=== PATIENT | male | born 1960 | race African-American/Black ===

== ENCOUNTER 2023-08-26 16:03 | Inpatient (IN) | payer OTHER ==
[~2023-08-26] VITALS: Ht 215.9 cm; Wt 146.7 kg
[2023-08-26] MEDS ORDERED: aspirin 81mg tab.chew PO ONE (16:25)
[2023-08-26 17:49] LABS: BASOPHILS % (AUTO) 0.4 % (0-1); EOSINOPHILS # (AUTO) 0.1 X10'3 (0-0.9); EOSINOPHILS % (AUTO) 1.1 % (0-6); HEMATOCRIT 38.1 % (42.0-52.0); HEMOGLOBIN 12.9 g/dl (14.0-17.9); LYMPHOCYTES # (AUTO) 0.7 X10'3 (1.1-4.8); LYMPHOCYTES % (AUTO) 7.6 % (21-51); MEAN CORPUSCULAR HEMOGLOBIN 33.6 PG (27.0-31.0); MEAN CORPUSCULAR HGB CONC 33.9 g/dL (33.0-36.5); MEAN PLATELET VOLUME 8.3 FL (7.4-10.4); MONOCYTES # (AUTO) 0.7 X10'3 (0-0.9); MONOCYTES % (AUTO) 8.2 % (2-12); NEUTROPHILS # (AUTO) 7.5 X10'3 (1.8-7.7); NEUTROPHILS % (AUTO) 82.7 % (42-75); PLATELET COUNT 108 X10'3 (140-440); RED BLOOD COUNT 3.85 X10'6 (4.70-6.10); RED CELL DISTRIBUTION WIDTH 13.6 % (11.5-14.5); WHITE BLOOD COUNT 9.1 X10'3 (4.5-11.0)
[2023-08-26 18:00] LABS: D-DIMER 24.05 MG/L FEU (0-0.50); INR 1.1 INR; PROTHROMBIN TIME 11.5 SECONDS (9.0-12.0)
[2023-08-26 18:01] LABS: ALANINE AMINOTRANSFERASE 36 U/L (12-78); ALBUMIN 3.6 G/DL (3.4-5.0); ALBUMIN/GLOBULIN RATIO 0.9 (1.1-1.5); ALKALINE PHOSPHATASE 76 IU/L (46-116); ANION GAP 4 (8-16); ASPARTATE AMINO TRANSFERASE 29 U/L (10-37); BLOOD UREA NITROGEN 18 MG/DL (7-18); BUN/CREATININE RATIO 14.5 (10.0-20.0); CALCIUM 8.7 MG/DL (8.5-10.1); CHLORIDE 104 MMOL/L (99-107); CREATININE 1.24 MG/DL (0.60-1.10); GLUCOSE 133 MG/DL (70-104); POTASSIUM 4.4 MMOL/L (3.5-5.1); SODIUM 136 MMOL/L (135-145); TOTAL CARBON DIOXIDE 27.6 MMOL/L (24-32); TOTAL PROTEIN 7.6 G/DL (6.4-8.2); eCRCL 92 ML/MIN; eGFR 59 ML/MIN
[2023-08-26] MEDS ORDERED: iohexol 350MG/ML 100ml bottle IV ONE (18:12)
[2023-08-26] MEDS ORDERED: heparin 10,000 units/1 ML INJ IV ONE ×2 (18:15→18:20)
[2023-08-26 19:28] LABS: APTT 28 SECONDS (22-32)
[2023-08-26 20:29] LABS: BILIRUBIN,URINE NEGATIVE (Neg); GLUCOSE, URINE NEGATIVE (Neg); KETONES,URINE NEGATIVE (Neg); LEUKOCYTE ESTERASE ,URINE NEGATIVE (Neg); NITRITES, URINE NEGATIVE (Neg); OCCULT BLOOD,URINE TRACE-INTACT (Neg); PH,URINE 5.5 (4.8-8.0); PROTEIN,URINE TRACE mg/dl (Neg)
[2023-08-26 20:35] LABS: COLOR,URINE DARK YELLOW (Yellow); UA COLLECTION TYPE VOIDED
[2023-08-26 20:36] LABS: CLARITY,URINE SLIGHTLY CLOUDY (Clear)
[2023-08-26 20:38] LABS: BACTERIA,URINE FEW /HPF (Neg); MUCUS STRANDS FEW /LPF (Neg); RBC,URINE 0-2 /HPF (0-2); SQUAMOUS EPITHELIAL CELL,UR FEW /LPF (FEW); URIC ACID CRYSTALS FEW /HPF (NEGATIVE)
[2023-08-26 20:39] LABS: SPERM FEW /HPF (NEGATIVE)
[2023-08-26 20:44] LABS: PRO BRAIN NATRIURETIC PEPTIDE 54 PG/ML (0-125)
[2023-08-26] MEDS ORDERED: HYDROcodone/acetaminophen 5mg/325mg tablet PO PRN (20:45)
[2023-08-26] MEDS ORDERED: potassium Cl 20 mEq SR tablet PO PRN ×2 (20:45)
[2023-08-26] MEDS ORDERED: morphine 2 MG/ML inj. syringe IV PRN (20:45)
[2023-08-26] MEDS ORDERED: ondansetron/PF 4mg/2ml inj IV PRN (20:45)
[2023-08-26] MEDS ORDERED: magnesium 4gm in 100ml NS 100 ML IV PRN (20:45)
[2023-08-26] MEDS ORDERED: potassium Cl 40MEQ/1/2NS 520ml 520 ML IV PRN (20:45)
[2023-08-26] MEDS ORDERED: magnesium Cl slow-release 64mg tablet PO PRN (20:45)
[2023-08-26] MEDS ORDERED: acetaminophen 325mg tablet PO PRN (20:45)
[2023-08-26] MEDS ORDERED: magnesium 2GM in 50ml NS 50 ML IV PRN (20:45)
[2023-08-26] MEDS: heparin 25,000 UNIT/250ml bag 250 ML IV PRN (20:48)
[2023-08-26] MEDS ORDERED: heparin 10,000 units/1 ML INJ IV PRN (20:55)
[2023-08-26 23:30] VITALS: BP 153/83; PULSE 77; RESP 16; TEMP 97.1; O2SAT 95
[2023-08-27 06:18] LABS: BASOPHILS % (AUTO) 0.6 % (0-1); EOSINOPHILS # (AUTO) 0.2 X10'3 (0-0.9); EOSINOPHILS % (AUTO) 2.4 % (0-6); HEMATOCRIT 37.4 % (42.0-52.0); HEMOGLOBIN 12.5 g/dl (14.0-17.9); LYMPHOCYTES # (AUTO) 1.3 X10'3 (1.1-4.8); LYMPHOCYTES % (AUTO) 16.9 % (21-51); MEAN CORPUSCULAR HGB CONC 33.3 g/dL (33.0-36.5); MEAN CORPUSCULAR VOLUME 99.3 FL (78-98); MEAN PLATELET VOLUME 8.5 FL (7.4-10.4); MONOCYTES # (AUTO) 0.6 X10'3 (0-0.9); MONOCYTES % (AUTO) 8.3 % (2-12); NEUTROPHILS # (AUTO) 5.4 X10'3 (1.8-7.7); NEUTROPHILS % (AUTO) 71.8 % (42-75); PLATELET COUNT 105 X10'3 (140-440); RED BLOOD COUNT 3.77 X10'6 (4.70-6.10); RED CELL DISTRIBUTION WIDTH 13.7 % (11.5-14.5); WHITE BLOOD COUNT 7.5 X10'3 (4.5-11.0)
[2023-08-27 06:31] LABS: ALANINE AMINOTRANSFERASE 37 U/L (12-78); ALBUMIN 3.3 G/DL (3.4-5.0); ALBUMIN/GLOBULIN RATIO 0.9 (1.1-1.5); ALKALINE PHOSPHATASE 64 IU/L (46-116); ANION GAP 8 (8-16); ASPARTATE AMINO TRANSFERASE 32 U/L (10-37); BLOOD UREA NITROGEN 13 MG/DL (7-18); BUN/CREATININE RATIO 13.5 (10.0-20.0); CALCIUM 8.9 MG/DL (8.5-10.1); CHLORIDE 102 MMOL/L (99-107); CREATININE 0.96 MG/DL (0.60-1.10); GLUCOSE 122 MG/DL (70-104); POTASSIUM 3.8 MMOL/L (3.5-5.1); SODIUM 137 MMOL/L (135-145); TOTAL CARBON DIOXIDE 27.2 MMOL/L (24-32); TOTAL PROTEIN 6.9 G/DL (6.4-8.2); eCRCL 118 ML/MIN; eGFR > 90 ML/MIN
[2023-08-27] MEDS: K and/or MAG REPLACEMENT MC SCH ×2 (07:09→20:19)
[2023-08-27 07:34] VITALS: BP 127/75; PULSE 69; RESP 18; TEMP 97.4; O2SAT 93
[2023-08-27] MEDS: heparin 25,000 UNIT/250ml bag 250 ML IV PRN ×2 (08:45→20:30)
[2023-08-27] MEDS ORDERED: NO HOME MEDS (11:10)
[2023-08-27 11:22] VITALS: BP 142/84; PULSE 78; RESP 13; TEMP 98.8; O2SAT 100
[2023-08-27 16:32] VITALS: BP 129/64; PULSE 72; RESP 16; TEMP 99.2; O2SAT 98
[2023-08-27 18:00] VITALS: BP 134/79; PULSE 82; RESP 18; TEMP 98.4; O2SAT 95
[2023-08-27 20:00] VITALS: RESP 16; RESP 18; O2SAT 95
[2023-08-27 22:53] VITALS: BP 143/72; PULSE 74; RESP 16; TEMP 98.6; O2SAT 97
[2023-08-28 01:29] LABS: BASOPHILS % (AUTO) 0.5 % (0-1); EOSINOPHILS # (AUTO) 0.4 X10'3 (0-0.9); EOSINOPHILS % (AUTO) 6.5 % (0-6); HEMATOCRIT 37.3 % (42.0-52.0); HEMOGLOBIN 12.7 g/dl (14.0-17.9); LYMPHOCYTES # (AUTO) 1.7 X10'3 (1.1-4.8); LYMPHOCYTES % (AUTO) 26.1 % (21-51); MEAN CORPUSCULAR HEMOGLOBIN 33.6 PG (27.0-31.0); MEAN CORPUSCULAR HGB CONC 34.1 g/dL (33.0-36.5); MEAN CORPUSCULAR VOLUME 98.3 FL (78-98); MEAN PLATELET VOLUME 8.2 FL (7.4-10.4); MONOCYTES # (AUTO) 0.5 X10'3 (0-0.9); MONOCYTES % (AUTO) 7.7 % (2-12); NEUTROPHILS # (AUTO) 3.7 X10'3 (1.8-7.7); NEUTROPHILS % (AUTO) 59.2 % (42-75); PLATELET COUNT 103 X10'3 (140-440); RED BLOOD COUNT 3.79 X10'6 (4.70-6.10); RED CELL DISTRIBUTION WIDTH 13.7 % (11.5-14.5); WHITE BLOOD COUNT 6.3 X10'3 (4.5-11.0)
[2023-08-28 01:43] LABS: ALANINE AMINOTRANSFERASE 36 U/L (12-78); ALBUMIN 3.2 G/DL (3.4-5.0); ALBUMIN/GLOBULIN RATIO 0.9 (1.1-1.5); ALKALINE PHOSPHATASE 67 IU/L (46-116); ANION GAP 7 (8-16); ASPARTATE AMINO TRANSFERASE 30 U/L (10-37); BILIRUBIN,TOTAL 0.8 MG/DL (0.1-1.0); BLOOD UREA NITROGEN 11 MG/DL (7-18); CALCIUM 8.8 MG/DL (8.5-10.1); CHLORIDE 103 MMOL/L (99-107); GLUCOSE 113 MG/DL (70-104); MAGNESIUM 1.9 MG/DL (1.5-2.4); SODIUM 138 MMOL/L (135-145); TOTAL CARBON DIOXIDE 28.2 MMOL/L (24-32); TOTAL PROTEIN 6.8 G/DL (6.4-8.2); eCRCL 113 ML/MIN; eGFR > 90 ML/MIN
[2023-08-28 02:54] VITALS: BP 143/69; PULSE 75; RESP 18; TEMP 98.6; O2SAT 98
[2023-08-28 06:00] VITALS: BP 160/87; PULSE 74; RESP 16; TEMP 98; O2SAT 98
[2023-08-28 06:01] VITALS: BP 156/80
[2023-08-28] MEDS: K and/or MAG REPLACEMENT MC SCH ×3 (07:32→12:50)
[2023-08-28 08:00] VITALS: RESP 14; O2SAT 95
[2023-08-28] MEDS: heparin 25,000 UNIT/250ml bag 250 ML IV PRN (09:24)
[2023-08-28 11:00] VITALS: BP 130/79; PULSE 70; RESP 17; TEMP 98.1; O2SAT 96
[2023-08-28] MEDS ORDERED: APIX5TAB3 PO (14:37)
[2023-08-28 15:00] VITALS: BP 143/86; PULSE 73; RESP 16; TEMP 97.4; O2SAT 97
[2023-08-28] MEDS ORDERED: apixaban 5mg tablet PO SCH ×2 (15:10→20:00)
== END 2023-08-28 16:20 | disposition home or self-care (01) | DRG 175 ==
LOC: ER 16:04 → ED HOLD 20:48 → PCU 3S 23:28
PROVIDERS: ADMIT Internal Medicine; ATTEND Internal Medicine
PROC: B32T1ZZ Computerized Tomography (CT Scan) of Left Pulmonary Artery using Low Osmolar Contrast (ICD-10-PCS; principal; 2023-08-26)
PROC: B3201ZZ Computerized Tomography (CT Scan) of Thoracic Aorta using Low Osmolar Contrast (ICD-10-PCS; 2023-08-26)
PROC: B32S1ZZ Computerized Tomography (CT Scan) of Right Pulmonary Artery using Low Osmolar Contrast (ICD-10-PCS; 2023-08-26)
DX: I26.99 Other pulmonary embolism without acute cor pulmonale (principal); I21.A1 Myocardial infarction type 2; I82.411 Acute embolism and thrombosis of right femoral vein; I82.431 Acute embolism and thrombosis of right popliteal vein; I82.441 Acute embolism and thrombosis of right tibial vein; Z79.899 Other long term (current) drug therapy
CPT/HCPCS: 36415; 71045; 71275; 80053; 81001; 82948; 83735; 83880; 84132; 84484; 85025; 85379; 85610; 85730; 87081; 93306; 93971; 96365; 96367; 97161; 97530; 99291; J1644; J3490; J7030; Q9967